=== PATIENT | female | born 1995 | race Caucasian/White ===

== ENCOUNTER 2020-04-18 11:36 | Emergency (ER) | payer OTHER ==
[2020-04-18 11:42] VITALS: BP 139/76
[2020-04-18] MEDS ORDERED: HYDROCODONE/ACETAMINOPHEN 5-325 MG (6 TAB/ER DISP) PO PRN (12:00)
--- NOTE | 2020-04-18 12:03 | ER Document Report ---
HPI - HPI Patient complains to provider of: dental pain Time Seen by Provider: 04/18/20 11:52 Context: 24-year-old female presents to the emergency room complaining of worsening right-sided facial pain and swelling for the past 2 days. States she had her wisdom teeth extracted last Sunday. Started having worsening pain and swelling on Sunday. States she was taking oxycodone but she is run out. States she called the oral surgeon on Sunday they told her that there was nothing they could do for her over the weekend. Has been taking ibuprofen and gargling without relief. States she went to [facility] and they would not do anything for her. Denies fevers. States is able to swallow but is painful. Tolerating p.o. fluids. Denies any nausea or vomiting. Denies any chance of . Associated Symptoms: None Exacerbated by: Denies Relieved by: Denies Similar symptoms previously: No Recently seen / treated by doctor: No - ROS Systems Reviewed and Negative: Yes All other systems reviewed and negative - CONSTITUTIONAL Constitutional: DENIES: Fever - EENT Notes: Dental pain - NEURO Neurology: DENIES: Headache, Weakness - GASTROINTESTINAL Gastrointestinal: DENIES: Nausea, Patient vomiting - REPRODUCTIVE Reproductive: DENIES: : - DERM Skin Color: Normal, [place] Skin Problems: None Past Medical History - General Information source: Patient - Social History Smoking Status: Never Smoker Frequency of alcohol use: None Drug Abuse: None Family History: Reviewed & Not Pertinent Vertical Provider Document - CONSTITUTIONAL Agree With Documented VS: Yes Exam Limitations: No Limitations General Appearance: Mild Distress - INFECTION CONTROL TRAVEL OUTSIDE OF THE [place] IN LAST 30 DAYS: No - HEENT HEENT: Atraumatic, Normocephalic. negative: Pharyngeal Exudate, Pharyngeal Tenderness, Pharyngeal Erythema, Tympanic Membrane Red, Tympanic Membrane Bulging Notes: No erythema or obvious signs of infections to the postoperative wisdom teeth extraction sites. There is swelling noted to the right outer gumline. It is tender to palpation. Not warm to touch. No abscesses noted. Tolerating her own secretions. Speaking in full sentences. - NECK Neck: Normal Inspection, Supple. negative: Lymphadenopathy-Left, Lymphadenopathy-Right - RESPIRATORY Respiratory: Breath Sounds Normal, No Respiratory Distress, Chest Non-Tender - CARDIOVASCULAR Cardiovascular: Regular Rate, Regular Rhythm, No Murmur - MUSCULOSKELETAL/EXTREMETIES Musculoskeletal/Extremeties: FROM - NEURO Level of Consciousness: Awake, Alert, Appropriate Motor/Sensory: No Motor Deficit, No Sensory Deficit - DERM Integumentary: Warm, Dry, No Rash Course - Re-evaluation Re-evalutation: 04/18/20 12:00 Patient was counseled on importance to continue with Motrin can alternate with Tylenol for pain. Salt water gargles. There were no signs of infection on the exam. Will be discharged home with #6 of Cameron. She was counseled on the importance to follow-up with her oral surgeon tomorrow. Patient was given strict return to the emergency room guidelines. Return for any new or worsening symptoms. All questions were answered. Patient verbalized understanding and agrees with plan of care. - Vital Signs Vital signs: Temp Pulse Resp BP Pulse Ox 98.3 F 82 18 139/76 H 98 04/18/20 11:41 04/18/20 11:41 04/18/20 11:41 04/18/20 11:41 04/18/20 11:41 Discharge - Discharge Clinical Impression: Pain, dental Condition: Stable Disposition: HOME, SELF-CARE Instructions: Oral Narcotic Medication ([facility]), Toothache ([facility]) Additional Instructions: Can alternate Tylenol and Motrin as needed for pain. Take Cameron as prescribed. Follow-up with your oral surgeon tomorrow. Return to the emergency room for any new or worsening symptoms.
== END 2020-04-18 12:12 | disposition home or self-care (01) ==
LOC: ER 11:36
DX: K08.89 Other specified disorders of teeth and supporting structures (principal); K08.409 Partial loss of teeth, unspecified cause, unspecified class
CPT/HCPCS: 99284